=== PATIENT | male | born 1960 | race Hispanic/Latino ===

== ENCOUNTER 2022-12-20 09:57 | Emergency (ER) | payer SELFPAY ==
[~2022-12-20 09:57] MED LIST: Iopamidol-370 76% 500 ML MDV (1 ML CHARGE) ONE
[2022-12-20 11:04] LABS: #Basophils 0.1 thou/uL (0.0-0.2); #Eosinphils 0.2 thou/uL (0.0-0.7); #Monocytes 0.5 thou/uL (0.11-0.59); #Neutrophils 3.9 thou/uL (1.40-6.50); %Basophils 1.2 % (0.0-1.0); %Lymphocytes 17.8 % (21.0-51.0); %Monocytes 9.5 % (0.0-10.0); %Neutrophils 68.1 % (42.0-75.0); Hemoglobin 13.1 g/dL (14.0-18.0); Mean Corpuscular HGB CONC 33.2 g/dL (32.0-36.0); Mean Corpuscular Hemoglobin 31.9 pg (27.0-31.0); Mean Corpuscular Volume 96.1 fl (78.0-98.0); Mean Platelet Volume 11.6 fL (7.4-10.4); Platelet Count 178 10x3/uL (130-400); Red Blood Cell (RBC) Count 4.11 mill/uL (4.70-6.10); White Blood Cell (WBC) Count 5.7 10x3/uL (4.8-10.8)
[2022-12-20] MEDS ORDERED: Ondansetron PF 4 MG/2 ML Vial ONE (11:18)
[2022-12-20] MEDS ORDERED: Morphine 4 MG/ML VIAL ONE (11:18)
[2022-12-20 11:25] LABS: ALT (SGPT) 71 U/L (8-55); AST (SGOT) 97 U/L (5-34); Albumin 3.8 g/dL (3.4-4.8); Alkaline Phosphatase 340 U/L (40-110); Anion Gap 11 mmol/L (10-20); BUN (Urea Nitrogen) 17 mg/dL (8.4-25.7); Bilirubin, Total 0.5 mg/dL (0.2-1.2); Calc. Creatinine Clearance 0 mL/min (70-130); Calcium 9.3 mg/dL (7.8-10.44); Carbon Dioxide 24 mmol/L (23-31); Chloride 106 mmol/L (98-107); Estimated GFR 96; Globulin 3.3 g/dL (2.4-3.5); Glucose 110 mg/dL (80-115); Lipase 103 U/L (8-78); Protein, Total 7.1 g/dL (5.8-8.1); Sodium 137 mmol/L (136-145)
[2022-12-20 15:32] LABS: Bacteria/HPF None Seen HPF (None Seen); Bilirubin Negative (Negative); Blood, Urine 3+ (Negative); CAUTI Indications for Culture Pelvic or flank pain; Clarity Clear (Clear); Glucose, Urine (Dipstick) Normal (Negative); Ketone, Urine Negative (Negative); Leukocyte Negative Leu/uL (Negative); Nitrite Negative (Negative); Protein, Urine (Dipstick) Negative (Neg-Trace); Specific Gravity, Urine 1.029 (1.002-1.036); Squamous Epithelial None Seen HPF (0-3); Urobilinogen Normal mg/dL (Less than 2); WBC/HPF 0-3 HPF (0-3); pH, Urine 5.5 (5.0-9.0)
[2022-12-20 15:33] LABS: Urine Culture Reflex No No
== END 2022-12-20 15:44 | disposition home or self-care (01) ==
LOC: ERS 09:57
DX: K86.9 Disease of pancreas, unspecified (principal)
CPT/HCPCS: 36415; 74177; 76705; 80053; 81001; 83690; 85025; 96374; 96375; J2270; J2405; Q9967

== ENCOUNTER 2023-01-03 11:33 | Inpatient (IN) | payer MEDICARE, SELFPAY ==
[2023-01-03] MEDS ORDERED: Morphine 4 MG/ML VIAL ONE (13:02)
[2023-01-03] MEDS ORDERED: Ondansetron PF 4 MG/2 ML Vial ONE (13:02)
[2023-01-03 13:13] LABS: #Basophils 0.1 thou/uL (0.0-0.2); #Eosinphils 0.1 thou/uL (0.0-0.7); #Monocytes 0.7 thou/uL (0.11-0.59); #Neutrophils 4.9 thou/uL (1.40-6.50); %Basophils 1.1 % (0.0-1.0); %Eosinophils 1.1 % (0.0-10.0); %Lymphocytes 12.6 % (21.0-51.0); %Monocytes 9.9 % (0.0-10.0); %Neutrophils 74.8 % (42.0-75.0); Mean Corpuscular HGB CONC 35.5 g/dL (32.0-36.0); Mean Corpuscular Volume 90.1 fl (78.0-98.0); Mean Platelet Volume 11.5 fL (7.4-10.4); Platelet Count 243 10x3/uL (130-400); Red Blood Cell (RBC) Count 3.75 mill/uL (4.70-6.10); White Blood Cell (WBC) Count 6.6 10x3/uL (4.8-10.8)
[2023-01-03 13:29] LABS: INR-International Normal Ratio 1.2; PTT 30.4 sec (22.9-36.1); Prothrombin Time 15.6 sec (12.0-14.7)
[2023-01-03 14:50] LABS: Albumin 3.3 g/dL (3.4-4.8)
[2023-01-03 14:51] LABS: Chloride 103 mmol/L (98-107); Potassium 4.3 mmol/L (3.5-5.1); Sodium 132 mmol/L (136-145)
[2023-01-03 14:52] LABS: Calcium 8.7 mg/dL (7.8-10.44); Glucose 109 mg/dL (80-115)
[2023-01-03 14:53] LABS: Globulin 3.3 g/dL (2.4-3.5); Protein, Total 6.6 g/dL (5.8-8.1)
[2023-01-03 14:54] LABS: Anion Gap 15 mmol/L (10-20); Bilirubin, Total 7.3 mg/dL (0.2-1.2); Carbon Dioxide 18 mmol/L (23-31)
[2023-01-03 14:55] LABS: Alkaline Phosphatase 576 U/L (40-110)
[2023-01-03 14:56] LABS: BUN (Urea Nitrogen) 15 mg/dL (8.4-25.7); Calc. Creatinine Clearance 0 mL/min (70-130); Estimated GFR 102
[2023-01-03 14:58] LABS: ALT (SGPT) 87 U/L (8-55); AST (SGOT) 93 U/L (5-34); Lipase 70 U/L (8-78)
[2023-01-03] MEDS ORDERED: Ondansetron ODT 4 MG TAB PO PRN (18:43)
[2023-01-03] MEDS ORDERED: Ondansetron PF 4 MG/2 ML Vial IVP PRN (18:43)
[2023-01-03] MEDS ORDERED: traMADol HCl 50 MG TAB PO PRN (18:48)
[2023-01-03] MEDS: Sodium Chloride 0.9% 1,000 ML IV SCH (19:57)
[2023-01-03] MEDS: Morphine 2 MG/ML VIAL SLOW IVP PRN (21:52)
[2023-01-03 22:00] VITALS: BMI 21.4
[2023-01-04] MEDS: Morphine 2 MG/ML VIAL SLOW IVP PRN (02:25)
[2023-01-04] MEDS ORDERED: Morphine 2 MG/ML VIAL SLOW IVP SCH (02:45)
[2023-01-04] MEDS: Morphine 4 MG/ML VIAL SLOW IVP PRN ×5 (05:46→21:52)
[2023-01-04 07:38] LABS: #Basophils 0.1 thou/uL (0.0-0.2); #Eosinphils 0.2 thou/uL (0.0-0.7); #Monocytes 0.5 thou/uL (0.11-0.59); #Neutrophils 4.6 thou/uL (1.40-6.50); %Basophils 1.5 % (0.0-1.0); %Eosinophils 2.8 % (0.0-10.0); %Neutrophils 75.4 % (42.0-75.0); Hemoglobin 11.7 g/dL (14.0-18.0); Mean Corpuscular HGB CONC 33.8 g/dL (32.0-36.0); Mean Corpuscular Hemoglobin 31.9 pg (27.0-31.0); Platelet Count 256 10x3/uL (130-400); RBC Distribution Width 13.5 % (11.5-14.5); Red Blood Cell (RBC) Count 3.67 mill/uL (4.70-6.10); White Blood Cell (WBC) Count 6.2 10x3/uL (4.8-10.8)
[2023-01-04 07:43] LABS: Mean Corpuscular Volume 94.3 fl (78.0-98.0)
[2023-01-04 07:55] LABS: Anion Gap 13 mmol/L (10-20); BUN (Urea Nitrogen) 12 mg/dL (8.4-25.7); Calc. Creatinine Clearance 86 mL/min (70-130); Carbon Dioxide 22 mmol/L (23-31); Chloride 106 mmol/L (98-107); Potassium 3.8 mmol/L (3.5-5.1); Sodium 137 mmol/L (136-145)
[2023-01-04 07:56] LABS: ALT (SGPT) 76 U/L (8-55); AST (SGOT) 81 U/L (5-34); Alkaline Phosphatase 520 U/L (40-110); Bilirubin, Total 7.6 mg/dL (0.2-1.2); Calcium 8.7 mg/dL (7.8-10.44); Estimated GFR 100; Globulin 3.5 g/dL (2.4-3.5); Glucose 96 mg/dL (80-115); Protein, Total 6.5 g/dL (5.8-8.1)
[2023-01-04] MEDS: Sodium Chloride 0.9% 1,000 ML IV SCH ×2 (08:44→21:53)
[2023-01-05] MEDS: Morphine 4 MG/ML VIAL SLOW IVP PRN ×5 (02:10→21:21)
[2023-01-05 05:20] LABS: #Basophils 0.1 thou/uL (0.0-0.2); #Eosinphils 0.2 thou/uL (0.0-0.7); #Monocytes 0.6 thou/uL (0.11-0.59); #Neutrophils 4.7 thou/uL (1.40-6.50); %Basophils 1.4 % (0.0-1.0); %Eosinophils 2.4 % (0.0-10.0); %Lymphocytes 11.7 % (21.0-51.0); %Monocytes 9.8 % (0.0-10.0); %Neutrophils 74.1 % (42.0-75.0); Hemoglobin 10.9 g/dL (14.0-18.0); Mean Corpuscular HGB CONC 34.5 g/dL (32.0-36.0); Mean Corpuscular Hemoglobin 32.2 pg (27.0-31.0); Mean Corpuscular Volume 93.2 fl (78.0-98.0); Mean Platelet Volume 11.6 fL (7.4-10.4); Platelet Count 258 10x3/uL (130-400); RBC Distribution Width 13.7 % (11.5-14.5); Red Blood Cell (RBC) Count 3.39 mill/uL (4.70-6.10); White Blood Cell (WBC) Count 6.3 10x3/uL (4.8-10.8)
[2023-01-05 05:47] LABS: ALT (SGPT) 66 U/L (8-55); AST (SGOT) 72 U/L (5-34); Albumin 2.9 g/dL (3.4-4.8); Alkaline Phosphatase 494 U/L (40-110); Anion Gap 13 mmol/L (10-20); BUN (Urea Nitrogen) 11 mg/dL (8.4-25.7); Bilirubin, Total 8.6 mg/dL (0.2-1.2); Calc. Creatinine Clearance 102 mL/min (70-130); Calcium 8.5 mg/dL (7.8-10.44); Carbon Dioxide 19 mmol/L (23-31); Chloride 105 mmol/L (98-107); Estimated GFR 106; Globulin 3.2 g/dL (2.4-3.5); Glucose 94 mg/dL (80-115); Potassium 3.7 mmol/L (3.5-5.1); Protein, Total 6.1 g/dL (5.8-8.1); Sodium 133 mmol/L (136-145)
[2023-01-05] MEDS ORDERED: Magnevist 469MG/ML 20 ML VIAL ONE (13:42)
[2023-01-05] MEDS: traMADol HCl 50 MG TAB PO PRN (16:29)
[2023-01-06] MEDS: Morphine 4 MG/ML VIAL SLOW IVP PRN ×3 (04:26→20:35)
[2023-01-06 06:27] LABS: #Basophils 0.1 thou/uL (0.0-0.2); #Eosinphils 0.1 thou/uL (0.0-0.7); #Monocytes 0.6 thou/uL (0.11-0.59); #Neutrophils 5.2 thou/uL (1.40-6.50); %Basophils 1.2 % (0.0-1.0); %Eosinophils 1.9 % (0.0-10.0); %Monocytes 8.8 % (0.0-10.0); %Neutrophils 77.8 % (42.0-75.0); Mean Corpuscular HGB CONC 34.8 g/dL (32.0-36.0); Mean Corpuscular Hemoglobin 31.8 pg (27.0-31.0); Mean Corpuscular Volume 91.3 fl (78.0-98.0); Mean Platelet Volume 11.9 fL (7.4-10.4); Platelet Count 261 10x3/uL (130-400); Red Blood Cell (RBC) Count 3.46 mill/uL (4.70-6.10); White Blood Cell (WBC) Count 6.7 10x3/uL (4.8-10.8)
[2023-01-06 07:01] LABS: ALT (SGPT) 60 U/L (8-55); AST (SGOT) 70 U/L (5-34); Albumin 2.9 g/dL (3.4-4.8); Alkaline Phosphatase 471 U/L (40-110); Anion Gap 16 mmol/L (10-20); BUN (Urea Nitrogen) 14 mg/dL (8.4-25.7); Bilirubin, Total 9.5 mg/dL (0.2-1.2); Calc. Creatinine Clearance 70 mL/min (70-130); Calcium 8.7 mg/dL (7.8-10.44); Carbon Dioxide 17 mmol/L (23-31); Chloride 106 mmol/L (98-107); Estimated GFR 91; Globulin 3.2 g/dL (2.4-3.5); Glucose 99 mg/dL (80-115); Potassium 3.8 mmol/L (3.5-5.1); Protein, Total 6.1 g/dL (5.8-8.1); Sodium 135 mmol/L (136-145)
[2023-01-06] MEDS ORDERED: Indomethacin 50 MG SUPP ONE (09:35)
[2023-01-06] MEDS ORDERED: Sodium Chloride 0.9% 100 ML ONE (09:38)
[2023-01-06] MEDS ORDERED: cefTRIAXone (ROCEPHIN) 1 GM VIAL ONE (09:38)
[2023-01-06] MEDS ORDERED: fentaNYL 50 mcg/mL 1 mL Vial ONE (10:05)
[2023-01-06] MEDS ORDERED: Glycopyrrolate 0.2 MG/ML 5 ML SYRINGE ONE (10:18)
[2023-01-06] MEDS ORDERED: Rocuronium Bromide 10 MG/ML (10ML VIAL) ONE (10:18)
[2023-01-06] MEDS ORDERED: Ondansetron PF 4 MG/2 ML Vial ONE (10:18)
[2023-01-06] MEDS ORDERED: Lidocaine 1% PF 5 ML VIAL ONE (10:18)
[2023-01-06] MEDS ORDERED: PROPOFOL 200 MG/20 ML VIAL ONE (10:18)
[2023-01-06] MEDS ORDERED: NEOSTIGMINE 3 MG/3 ML SYR 3 MG/3 ML SYRINGE ONE (10:18)
[2023-01-06] MEDS: Acetaminophen 325 MG TAB PO PRN (20:35)
[2023-01-06] MEDS: traMADol HCl 50 MG TAB PO PRN (20:36)
[2023-01-07] MEDS: Morphine 4 MG/ML VIAL SLOW IVP PRN ×2 (00:38→09:46)
[2023-01-07] MEDS: Acetaminophen 325 MG TAB PO PRN ×2 (00:38→09:46)
[2023-01-07 06:30] LABS: #Basophils 0.1 thou/uL (0.0-0.2); #Eosinphils 0.1 thou/uL (0.0-0.7); #Monocytes 0.7 thou/uL (0.11-0.59); #Neutrophils 4.6 thou/uL (1.40-6.50); %Basophils 1.1 % (0.0-1.0); %Eosinophils 2.2 % (0.0-10.0); %Lymphocytes 12.6 % (21.0-51.0); %Neutrophils 72.5 % (42.0-75.0); Hemoglobin 10.2 g/dL (14.0-18.0); Mean Corpuscular HGB CONC 34.6 g/dL (32.0-36.0); Mean Corpuscular Hemoglobin 31.7 pg (27.0-31.0); Mean Corpuscular Volume 91.6 fl (78.0-98.0); Mean Platelet Volume 11.6 fL (7.4-10.4); Platelet Count 246 10x3/uL (130-400); RBC Distribution Width 14.3 % (11.5-14.5); Red Blood Cell (RBC) Count 3.22 mill/uL (4.70-6.10); White Blood Cell (WBC) Count 6.3 10x3/uL (4.8-10.8)
[2023-01-07 07:05] LABS: ALT (SGPT) 57 U/L (8-55); AST (SGOT) 70 U/L (5-34); Albumin 2.8 g/dL (3.4-4.8); Alkaline Phosphatase 431 U/L (40-110); Anion Gap 14 mmol/L (10-20); BUN (Urea Nitrogen) 22 mg/dL (8.4-25.7); Bilirubin, Total 9.5 mg/dL (0.2-1.2); Calc. Creatinine Clearance 54 mL/min (70-130); Calcium 8.3 mg/dL (7.8-10.44); Carbon Dioxide 18 mmol/L (23-31); Chloride 107 mmol/L (98-107); Estimated GFR 67; Globulin 3.1 g/dL (2.4-3.5); Glucose 93 mg/dL (80-115); Potassium 3.7 mmol/L (3.5-5.1); Protein, Total 5.9 g/dL (5.8-8.1); Sodium 135 mmol/L (136-145)
[2023-01-07] MEDS ORDERED: Polyethylene Glycol 3350 17 GM Packet PO SCH (12:00)
[2023-01-07 12:24] VITALS: BP 116/74; TEMP 98.9
[2023-01-07] MEDS: traMADol HCl 50 MG TAB PO PRN (15:02)
== END 2023-01-07 15:35 | disposition short-term general hospital (02) | DRG 435 ==
LOC: ERS 11:33 → SURG A 18:21
PROVIDERS: ADMIT Internal Medicine; ATTEND Family Medicine
PROC: 0FJB8ZZ Inspection of Hepatobiliary Duct, Via Natural or Artificial Opening Endoscopic (ICD-10-PCS; principal; 2023-01-06)
PROC: 0FJD8ZZ Inspection of Pancreatic Duct, Via Natural or Artificial Opening Endoscopic (ICD-10-PCS; 2023-01-06)
DX: C25.9 Malignant neoplasm of pancreas, unspecified (principal); K83.1 Obstruction of bile duct; C78.01 Secondary malignant neoplasm of right lung; C79.70 Secondary malignant neoplasm of unspecified adrenal gland; E87.1 Hypo-osmolality and hyponatremia; C78.7 Secondary malignant neoplasm of liver and intrahepatic bile duct; C78.6 Secondary malignant neoplasm of retroperitoneum and peritoneum; C77.9 Secondary and unspecified malignant neoplasm of lymph node, unspecified; F17.210 Nicotine dependence, cigarettes, uncomplicated; K83.8 Other specified diseases of biliary tract; E80.6 Other disorders of bilirubin metabolism; Z79.899 Other long term (current) drug therapy; Z85.46 Personal history of malignant neoplasm of prostate; Z80.3 Family history of malignant neoplasm of breast; D64.9 Anemia, unspecified; K59.03 Drug induced constipation; T39.95XA Adverse effect of unspecified nonopioid analgesic, antipyretic and antirheumatic, initial encounter
CPT/HCPCS: 36415; 74177; 74183; 76705; 80053; 83690; 84484; 85025; 85610; 85730; 93005; 96374; 96375; A9579; J0696; J2270; J2272; J2405; J2704; J3010; J3490; J7050; Q9967

== ENCOUNTER 2023-01-13 07:43 | Emergency (ER) | payer MEDICARE ==
[2023-01-13] MEDS ORDERED: Morphine 4 MG/ML VIAL ONE (08:30)
[2023-01-13] MEDS ORDERED: Ondansetron PF 4 MG/2 ML Vial ONE (08:30)
[2023-01-13 08:35] LABS: #Basophils 0.1 thou/uL (0.0-0.2); #Eosinphils 0.1 thou/uL (0.0-0.7); #Monocytes 0.7 thou/uL (0.11-0.59); #Neutrophils 6.7 thou/uL (1.40-6.50); %Eosinophils 1.3 % (0.0-10.0); %Lymphocytes 8.7 % (21.0-51.0); %Monocytes 8.8 % (0.0-10.0); %Neutrophils 79.5 % (42.0-75.0); Hemoglobin 11.3 g/dL (14.0-18.0); Mean Corpuscular HGB CONC 34.9 g/dL (32.0-36.0); Mean Corpuscular Hemoglobin 31.6 pg (27.0-31.0); Mean Corpuscular Volume 90.5 fl (78.0-98.0); Mean Platelet Volume 11.1 fL (7.4-10.4); Platelet Count 291 10x3/uL (130-400); RBC Distribution Width 15.1 % (11.5-14.5); Red Blood Cell (RBC) Count 3.58 mill/uL (4.70-6.10); White Blood Cell (WBC) Count 8.4 10x3/uL (4.8-10.8)
[2023-01-13 08:50] LABS: ALT (SGPT) 69 U/L (8-55); AST (SGOT) 99 U/L (5-34); Albumin 2.9 g/dL (3.4-4.8); Alkaline Phosphatase 380 U/L (40-110); Anion Gap 13 mmol/L (10-20); BUN (Urea Nitrogen) 29 mg/dL (8.4-25.7); Bilirubin, Total 6.3 mg/dL (0.2-1.2); Calc. Creatinine Clearance 0 mL/min (70-130); Calcium 8.5 mg/dL (7.8-10.44); Carbon Dioxide 20 mmol/L (23-31); Chloride 102 mmol/L (98-107); Estimated GFR 61; Globulin 3.7 g/dL (2.4-3.5); Glucose 164 mg/dL (80-115); Lipase 68 U/L (8-78); Potassium 4.4 mmol/L (3.5-5.1); Protein, Total 6.6 g/dL (5.8-8.1); Sodium 131 mmol/L (136-145)
[2023-01-13 09:54] LABS: Bacteria/HPF None Seen HPF (None Seen); Bilirubin 1+ (Negative); Blood, Urine 1+ (Negative); CAUTI Indications for Culture Immunosuppressed; Clarity Clear (Clear); Glucose, Urine (Dipstick) Normal (Negative); Ketone, Urine Negative (Negative); Leukocyte Negative Leu/uL (Negative); Nitrite Negative (Negative); Protein, Urine (Dipstick) 30 mg/dL (Neg-Trace); Squamous Epithelial 0-3 HPF (0-3); Urobilinogen Normal mg/dL (Less than 2); WBC/HPF 0-3 HPF (0-3); pH, Urine 5.5 (5.0-9.0)
[2023-01-13 09:55] LABS: Specific Gravity, Urine 1.052 (1.002-1.036)
[2023-01-13 09:57] LABS: Urine Culture Reflex Yes Yes
[2023-01-13] MEDS ORDERED: Iopamidol-370 76% 500 ML MDV (1 ML CHARGE) ONE (10:06)
== END 2023-01-13 11:18 | disposition home or self-care (01) ==
LOC: ERS 07:43
DX: C25.9 Malignant neoplasm of pancreas, unspecified (principal); K59.00 Constipation, unspecified; F17.210 Nicotine dependence, cigarettes, uncomplicated
CPT/HCPCS: 74177; 80053; 81001; 83605; 83690; 85025; 87086; 93005; 96374; 96375; J2270; J2405; Q9967

== ENCOUNTER 2023-01-17 05:24 | Emergency (ER) | payer MEDICARE ==
[2023-01-17 07:54] LABS: #Basophils 0.1 thou/uL (0.0-0.2); #Eosinphils 0.1 thou/uL (0.0-0.7); #Monocytes 1.1 thou/uL (0.11-0.59); #Neutrophils 9.3 thou/uL (1.40-6.50); %Eosinophils 0.8 % (0.0-10.0); %Lymphocytes 9.6 % (21.0-51.0); %Monocytes 9.6 % (0.0-10.0); %Neutrophils 78.3 % (42.0-75.0); Hemoglobin 10.7 g/dL (14.0-18.0); Mean Corpuscular Volume 93.9 fl (78.0-98.0); Mean Platelet Volume 11.3 fL (7.4-10.4); Platelet Count 421 10x3/uL (130-400); RBC Distribution Width 14.2 % (11.5-14.5); Red Blood Cell (RBC) Count 3.45 mill/uL (4.70-6.10); White Blood Cell (WBC) Count 11.8 10x3/uL (4.8-10.8)
[2023-01-17 08:07] LABS: INR-International Normal Ratio 1.2; PTT 38.7 sec (22.9-36.1); Prothrombin Time 15.5 sec (12.0-14.7)
[2023-01-17 08:17] LABS: ALT (SGPT) 75 U/L (8-55); AST (SGOT) 104 U/L (5-34); Albumin 3.2 g/dL (3.4-4.8); Alkaline Phosphatase 447 U/L (40-110); Anion Gap 15 mmol/L (10-20); BUN (Urea Nitrogen) 24 mg/dL (8.4-25.7); Bilirubin, Total 4.3 mg/dL (0.2-1.2); Calc. Creatinine Clearance 0 mL/min (70-130); Calcium 9.2 mg/dL (7.8-10.44); Carbon Dioxide 22 mmol/L (23-31); Chloride 98 mmol/L (98-107); Estimated GFR 67; Glucose 102 mg/dL (80-115); Lipase 62 U/L (8-78); Potassium 4.6 mmol/L (3.5-5.1); Protein, Total 7.2 g/dL (5.8-8.1); Sodium 130 mmol/L (136-145)
[2023-01-17 09:11] LABS: Bacteria/HPF None Seen HPF (None Seen); Bilirubin 1+ (Negative); Blood, Urine 1+ (Negative); CAUTI Indications for Culture Dysuria,urgency,freq; Clarity Clear (Clear); Glucose, Urine (Dipstick) Normal (Negative); Ketone, Urine Negative (Negative); Leukocyte Negative Leu/uL (Negative); Nitrite Negative (Negative); Protein, Urine (Dipstick) 70 mg/dL (Neg-Trace); Specific Gravity, Urine 1.029 (1.002-1.036); Squamous Epithelial 0-3 HPF (0-3); WBC/HPF 0-3 HPF (0-3); pH, Urine 5.5 (5.0-9.0)
[2023-01-17 09:14] LABS: Urine Culture Reflex No No
[2023-01-17] MEDS ORDERED: Ketorolac Tromethamine 30 MG/ML VIAL ONE (09:38)
[2023-01-17] MEDS ORDERED: Dicyclomine 20 MG/2 ML VIAL ONE (09:38)
== END 2023-01-17 09:52 | disposition home or self-care (01) ==
LOC: ERS 05:24
DX: K59.00 Constipation, unspecified (principal); C25.9 Malignant neoplasm of pancreas, unspecified; D72.829 Elevated white blood cell count, unspecified; F17.210 Nicotine dependence, cigarettes, uncomplicated
CPT/HCPCS: 36415; 71045; 80053; 81001; 83605; 83690; 85025; 85610; 85730; 87040; 96372; 96374; J1885

== ENCOUNTER 2023-01-19 09:36 | Emergency (ER) | payer MEDICARE ==
[2023-01-19 10:01] LABS: #Basophils 0.1 thou/uL (0.0-0.2); #Eosinphils 0.1 thou/uL (0.0-0.7); #Monocytes 0.9 thou/uL (0.11-0.59); #Neutrophils 10.8 thou/uL (1.40-6.50); %Basophils 0.8 % (0.0-1.0); %Eosinophils 0.8 % (0.0-10.0); %Lymphocytes 7.8 % (21.0-51.0); Mean Corpuscular Hemoglobin 31.5 pg (27.0-31.0); Mean Corpuscular Volume 92.8 fl (78.0-98.0); Platelet Count 485 10x3/uL (130-400); RBC Distribution Width 13.7 % (11.5-14.5); Red Blood Cell (RBC) Count 3.49 mill/uL (4.70-6.10)
[2023-01-19 10:27] LABS: ALT (SGPT) 79 U/L (8-55); AST (SGOT) 116 U/L (5-34); Albumin 3.1 g/dL (3.4-4.8); Alkaline Phosphatase 595 U/L (40-110); Anion Gap 17 mmol/L (10-20); BUN (Urea Nitrogen) 27 mg/dL (8.4-25.7); Bilirubin, Total 3.7 mg/dL (0.2-1.2); Calc. Creatinine Clearance 0 mL/min (70-130); Calcium 8.9 mg/dL (7.8-10.44); Carbon Dioxide 21 mmol/L (23-31); Chloride 99 mmol/L (98-107); Estimated GFR 55; Globulin 3.8 g/dL (2.4-3.5); Glucose 102 mg/dL (80-115); Potassium 4.5 mmol/L (3.5-5.1); Protein, Total 6.9 g/dL (5.8-8.1); Sodium 132 mmol/L (136-145)
[2023-01-19] MEDS ORDERED: Iopamidol-370 76% 500 ML MDV (1 ML CHARGE) ONE (10:54)
[2023-01-19 12:27] LABS: INR-International Normal Ratio 1.2; Prothrombin Time 15.8 sec (12.0-14.7)
[2023-01-19 12:28] LABS: PTT 36.3 sec (22.9-36.1)
[2023-01-19 14:18] LABS: Bilirubin 1+ (Negative); Blood, Urine 1+ (Negative); CAUTI Indications for Culture Dysuria,urgency,freq; Clarity Clear (Clear); Glucose, Urine (Dipstick) Normal (Negative); Ketone, Urine Negative (Negative); Leukocyte 25 Leu/uL (Negative); Nitrite Negative (Negative); Protein, Urine (Dipstick) 50 mg/dL (Neg-Trace); RBC/HPF 0-3 HPF (0-3); Specific Gravity, Urine 1.028 (1.002-1.036); Squamous Epithelial 0-3 HPF (0-3); Urobilinogen Normal mg/dL (Less than 2); WBC/HPF 0-3 HPF (0-3); pH, Urine 5.5 (5.0-9.0)
[2023-01-19 14:26] LABS: Bacteria/HPF 1+ HPF (None Seen)
[2023-01-19] MEDS ORDERED: Ondansetron PF 4 MG/2 ML Vial ONE (14:26)
[2023-01-19] MEDS ORDERED: Morphine 4 MG/ML VIAL ONE (14:26)
[2023-01-19 14:27] LABS: Urine Culture Reflex No No
[2023-01-20] MEDS ORDERED: Ondansetron PF 4 MG/2 ML Vial IVP PRN (01:14)
[2023-01-20] MEDS ORDERED: Acetaminophen 325 MG TAB PO PRN (01:14)
[2023-01-20] MEDS ORDERED: Ipratropium/Albuterol 3 ML NEB EZPAP PRN (01:16)
[2023-01-20] MEDS ORDERED: HYDROcodone/Acetaminophen 10/325 mg Tablet PO PRN (01:17)
[2023-01-20] MEDS ORDERED: Morphine 4 MG/ML VIAL SLOW IVP PRN (01:18)
[2023-01-20] MEDS ORDERED: Furosemide 20 MG/2 ML VIAL SLOW IVP SCH ×2 (01:30→14:00)
[2023-01-20] MEDS ORDERED: Polyethylene Glycol 3350 17 GM Packet PO SCH (09:00)
[2023-01-20] MEDS ORDERED: Morphine ER 30 MG TAB PO SCH (09:00)
[2023-01-20] MEDS ORDERED: Senokot S 8.6-50 MG TAB PO SCH (09:00)
== END 2023-01-19 15:21 | disposition home or self-care (01) ==
LOC: ERS 09:36
DX: J18.9 Pneumonia, unspecified organism (principal); C25.9 Malignant neoplasm of pancreas, unspecified; D72.829 Elevated white blood cell count, unspecified; F17.210 Nicotine dependence, cigarettes, uncomplicated
CPT/HCPCS: 36415; 71046; 71275; 80053; 81001; 83690; 83880; 84484; 85025; 85610; 85730; 93005; 94760; 96374; 96375; J2270; J2405; Q9967